=== PATIENT | female | born 1940 | race Caucasian/White ===

== ENCOUNTER 2021-02-20 09:59 | Emergency (ER) | payer MEDICARE, OTHER, SELFPAY ==
--- NOTE | ~2021-02-20 | CT_ITS ---
EXAMINATION: CT brain wo con DATE: 02/20/2021 15:30 INDICATION: Fall. Head injury. TECHNIQUE: Computed tomography (CT) of the head was performed without intravenous contrast. The mA wa s adjusted according to patient size. Iterative reconstruction technique was employed. Exam dose: 60 5.33 mGy-cm total exam DLP. COMPARISON: None FINDINGS: There is calcification of the dominant right vertebral artery and bilateral carotid siphon and supraclinoid internal carotid artery calcification. There is prominent patchy and nonspecific dim inished attenuation of the cerebral white matter, likely due to chronic small vessel ischemic changes . Normal ventricular size. No intracranial mass lesion or hemorrhage or cerebrovascular accident, midline shift or mass effect e ffect is detected. No fracture or bone destruction of the cranial vault. The mastoid air cells and included paranasal si nuses are normally developed and aerated. IMPRESSION: Cerebral atherosclerosis and chronic small vessel ischemic changes of the cerebral white matter No skull fracture or acute intracranial finding Reviewed, dictated and finalized at [facility]. Reviewed, dictated and finalized at location [facility]. RIGGER
--- NOTE | ~2021-02-20 | XR_ITS ---
XR wrist LT min 3V DATE: 02/20/2021 15:48 INDICATION: Fall. Abrasions, bruising ulnar left wrist TECHNIQUE: 4 views COMPARISON: None FINDINGS: There is diffuse osteopenia. There is osteoarthritis at multiple joints, including the triscaphe and particularly first carpometac arpal joints, as well as interphalangeal joint of the first digit. No fracture or dislocation, periosteal reaction or bone destruction. IMPRESSION: Osteopenia Polyarticular osteoarthritis No fracture or dislocation Reviewed, dictated and finalized at location [facility]. GENCY PLANNING AND RESPONSE MANAGER
--- NOTE | ~2021-02-20 | XR_ITS ---
XR knee LT 3V 02/20/2021 15:49 Indication: Left knee pain after fall Procedure: 3 views left knee Comparison: No prior studies for comparison. Findings: There is moderate-severe osteoarthritis of the left knee, most advanced in the medial aneta rtment. No fracture or traumatic malalignment. No significant joint effusion. No foreign bodies. Impression: 1: Moderate-severe osteoarthritis of the left knee. Reviewed, dictated and finalized at location [facility]. ICATION SERVICER Impression: 1: Moderate-severe osteoarthritis of the left knee.
--- NOTE | ~2021-02-20 | XR_ITS ---
XR elbow RT min 3V DATE: 02/20/2021 15:48 INDICATION: Fall. Abrasions and bruising at posterior aspect of elbow TECHNIQUE: 4 views COMPARISON: None FINDINGS: There is diffuse osteopenia. No fracture or dislocation, periosteal reaction or bone destruction is detected. IMPRESSION: No fracture or dislocation or joint effusion Reviewed, dictated and finalized at location B. OAT MATE
[2021-02-20 10:05] VITALS: BP 103/89; PULSE 65; RESP 18; TEMP 36.2; O2SAT 100
[2021-02-20 13:56] VITALS: BP 142/85; PULSE 74; RESP 18; O2SAT 97
[2021-02-20 15:57] VITALS: BP 149/89; PULSE 76; RESP 16; TEMP 36.2; O2SAT 98
--- NOTE | 2021-02-20 17:18 | ED.FALL ---
HPI - Fall General Chief Complaint: Fall Stated Complaint: fall Time Seen by Provider: 02/20/21 14:18 Source: patient Mode of arrival: ambulatory Limitations: no limitations History of Present Illness HPI Narrative: 80-year-old with a history of hypertension here with complaints of fall. Patient states that she was trying to get the cookie paper in the garage lost her balance and fell and hit her head. She denies loss of consciousness. Complains of right elbow , left wrist and left knee pain. She denies any other injuries. MD complaint: fall Onset (ago): day(s) (1) Fall witnessed: yes, by family Place fall occurred: home Review of Systems Review of Systems: All systems reviewed & are unremarkable except as noted in HPI and below Constitutional: Constitutional: Reports no additional constitutional complaints Eyes: Eyes: Reports no additional eye complaints ENT: Reports system reviewed and no additional complaints, except as documented Cardiovascular: Cardiovascular: Reports no additional cardiovascular complaints Respiratory: Respiratory: Reports no additional respiratory complaints Gastrointestinal: Gastrointestinal: Reports no additional gastrointestinal complaints Musculoskeletal: Musculoskeletal: Reports as per HPI Integumentary/Breasts: Skin/Breast: Reports system reviewed and no additional complaints, except as docu Neurologic: Reports system reviewed and no additional complaints, except as documented Exam Narrative: GENERAL: Well-appearing, well-nourished, and in no acute distress. HEAD: Normocephalic, atraumatic.a small hematoma in the occipital area EYES: PERRLA and EOMI. NECK: Supple. CHEST: Clear to auscultation. No respiratory distress. HEART: Regular rate and rhythm. No murmur heard. Normal peripheral pulses. ABDOMEN: Soft, nontender, nondistended, normal active bowel sounds. EXTREMITIES: Normal range of motion. No edema. A small skin avulsion noted on the right elbow and left wrist mild joint effusion in the left knee. SKIN: Warm, dry, no rash. NEURO: No focal deficits. Alert and oriented x3. PSYCH: Normal mood and affect. Course Course Emergency Course: Inform patient about her x-ray findings. She declined any pain medication Kyle wrap her left knee. Advised her to take Tylenol as needed for pain. Vital Signs Vital signs: Vital Signs Temperature 36.2 C L 02/20/21 10:05 Pulse Rate 65 02/20/21 10:05 Respiratory Rate 18 02/20/21 10:05 Blood Pressure 103/89 02/20/21 10:05 Pulse Oximetry 100 02/20/21 10:05 Temperature 36.2 C L 02/20/21 15:57 Pulse Rate 75 02/20/21 17:57 Respiratory Rate 16 02/20/21 17:57 Blood Pressure 149/86 H 02/20/21 17:57 Pulse Oximetry 99 02/20/21 17:57 MDM - Fall Differential Diagnosis Differential diagnosis: Likely fracture of wrist and concussion with loss of consciousness Imaging Data Radiologist's impression: ITS Impressions Head CT 02/20/21 15:34 IMPRESSION: Cerebral atherosclerosis and chronic small vessel ischemic changes of the cerebral white matter No skull fracture or acute intracranial finding Knee X-Ray 02/20/21 15:56 Impression: 1: Moderate-severe osteoarthritis of the left knee. Elbow X-Ray 02/20/21 16:01 IMPRESSION: No fracture or dislocation or joint effusion Wrist X-Ray 02/20/21 16:02 IMPRESSION: Osteopenia Polyarticular osteoarthritis No fracture or dislocation Discharge Plan Discharge Clinical Impression: Minor head injury Qualifiers: Encounter type: initial encounter Qualified Code(s): S09.90XA - Unspecified injury of head, initial encounter Contusion of elbow, right Qualifiers: Encounter type: initial encounter Qualified Code(s): S50.01XA - Contusion of right elbow, initial encounter Contusion of left wrist Qualifiers: Encounter type: initial encounter Qualified Code(s): S60.212A - Contusion of left wrist, initial encounter Avulsion of skin of el
[2021-02-20 17:57] VITALS: BP 149/86; PULSE 75; RESP 16; O2SAT 99
== END 2021-02-20 17:59 | disposition home or self-care (01) ==
PROVIDERS: Emergency Provider Family Medicine; PCP Internal Medicine
DX: S09.90XA Unspecified injury of head, initial encounter (principal); S50.01XA Contusion of right elbow, initial encounter; S60.212A Contusion of left wrist, initial encounter; S80.02XA Contusion of left knee, initial encounter; S51.001A Unspecified open wound of right elbow, initial encounter; S61.502A Unspecified open wound of left wrist, initial encounter; M17.12 Unilateral primary osteoarthritis, left knee; M85.88 Other specified disorders of bone density and structure, other site; M19.032 Primary osteoarthritis, left wrist; I67.2 Cerebral atherosclerosis; W18.39XA Other fall on same level, initial encounter
CPT/HCPCS: 70450; 73080; 73110; 73562; 99284